=== PATIENT | male | born 1975 | race American Indian/Alaskan Native ===

== ENCOUNTER 2017-12-27 00:36 | Inpatient (IN) | payer OTHER ==
[2017-12-27] MEDS ORDERED: ASPIRIN PO ONE (01:08)
[2017-12-27 01:42] LABS: Basophils % (Auto) 0.5 % (0.0-1.8); Eosinophils % (Auto) 0.2 % (0.0-4.3); Hematocrit 43.8 % (35.5-45.6); Hemoglobin 15.2 gm/dl (11.8-15.2); Lymphocytes # (Auto) 2.3 K/mm3 (1.2-5.4); Lymphocytes % (Auto) 23.7 % (13.4-35.0); Mean Corpuscular HGB Conc 35 % (32-34); Mean Corpuscular Hemoglobin 31 pg (28-32); Mean Corpuscular Volume 90 fl (84-94); Monocytes % (Auto) 9.9 % (0.0-7.3); Platelet Count 230 K/mm3 (140-440); Red Blood Count 4.87 M/mm3 (3.65-5.03); Red Cell Distribution Width 12.8 % (13.2-15.2)
[2017-12-27 02:01] LABS: BUN/Creatinine Ratio 6; Blood Urea Nitrogen 6 mg/dL (9-20); Hemolysis Index 16
[2017-12-27 02:36] LABS: Chol/HDL Ratio 4.27 %; HDL Cholesterol 36 mg/dL (40-59); LDL Cholesterol,Direct 94 mg/dL (50-130)
[2017-12-27] MEDS ORDERED: LOPRESSOR PO ONE (02:43)
[2017-12-27] MEDS ORDERED: NITRO-BID 2% TP ONE (02:43)
[2017-12-27] MEDS ORDERED: PLAVIX PO ONE (02:43)
[2017-12-27] MEDS ORDERED: HEPARIN 25,000 UNIT in D5W 497.5 ML IV SCH (03:00)
--- NOTE | 2017-12-27 03:07 | Emergency Department Report ---
ED Chest Pain HPI - General Chief Complaint: Chest Pain Stated Complaint: CHEST PAIN Time Seen by Provider: 12/27/17 02:41 Source: patient Mode of arrival: Ambulatory Limitations: No Limitations - History of Present Illness Initial Comments: Patient said his chest pain is substernal in location and sided about 2 days ago lasted about 3 hours and improved. However on Wednesday night he started again in the same location while he was exercising and continued. He also felt pain in both hands. The pain was improved with Excedrin. There was no aggravating factor. MD Complaint: chest pain Onset/Timin (days) -: Gradual Onset: during rest, during exertion Pain Location: substernal Pain Radiation: RUE, LUE Severity: moderate Quality: squeezing Consistency: intermittent Improves With: other (Excedrin) Worsens With: nothing re: nausea Treatments Prior to Arrival: none Aspirin use within the Past 7 Days: (0) No - Related Data Allergies Allergy/AdvReac Type Severity Reaction Status Date / Time No Known Allergies Allergy Unverified 12/27/17 01:08 Heart Score - HEART Score History: Moderately suspicious EKG: Non-specific Age: < 45 Risk factors: 1-2 risk factors Troponin: > 3x normal limit HEART Score: 5 ED Review of Systems ROS: Stated complaint: CHEST PAIN Other details as noted in HPI Comment: All other systems reviewed and negative ED Past Medical Hx - Past Medical History Hx Hypertension: Yes ED Physical Exam - General Limitations: No Limitations General appearance: alert, in no apparent distress - Head Head exam: Present: atraumatic, normocephalic - Eye Eye exam: Present: normal appearance - ENT ENT exam: Present: mucous membranes moist - Neck Neck exam: Present: normal inspection - Respiratory Respiratory exam: Present: normal lung sounds bilaterally. Absent: respiratory distress - Cardiovascular Cardiovascular Exam: Present: regular rate, normal rhythm. Absent: systolic murmur, diastolic murmur, rubs, gallop - GI/Abdominal GI/Abdominal exam: Present: soft, normal bowel sounds. Absent: tenderness - Rectal Rectal exam: Present: deferred - Extremities Exam Extremities exam: Present: normal inspection - Back Exam Back exam: Present: normal inspection - Neurological Exam Neurological exam: Present: alert, oriented X3 - Psychiatric Psychiatric exam: Present: normal affect, normal mood - Skin Skin exam: Present: warm, dry, intact, normal color. Absent: rash ED Course Vital Signs 12/27/17 12/27/17 00:36 00:58 Temperature 98.4 F 98.4 F Pulse Rate 90 88 Respiratory 18 18 Rate Blood Pressure 147/113 147/113 O2 Sat by Pulse 97 96 Oximetry MONALISA score - Monalisa Score Age > 65: (0) No Aspirin use within the Past 7 Days: (0) No 3 or more CAD Risk Factors: (0) No 2 or more Angina events in past 24 hrs: (1) Yes Known CAD with more than 50% Stenosis: (0) No Elevated Cardiac Markers: (1) Yes ST Deviation Greater than 0.5mm: (0) No MONALISA Score: 2 ED Medical Decision Making - Lab Data Result diagrams: 12/27/17 01:21 12/27/17 01:21 - EKG Data -: EKG Interpreted by Me EKG shows normal: sinus rhythm (normal sinus rhythm at a rate of 73), axis ( normal), intervals (normal), QRS complexes (normal), ST-T waves (normal) - Medical Decision Making I spoke to Dr. Rosen and he has accepted the patient for admission Critical care attestation.: If time is entered above; I have spent that time in minutes in the direct care of this critically ill patient, excluding procedure time. ED Disposition Clinical Impression: Non-STEMI (non-ST elevated myocardial infarction) Disposition: 09 OP ADMIT IP TO THIS HOSP Is pt being admited?: Yes Does the pt Need Aspirin: Yes Condition: Stable Time of Disposition: 03:14 Print Language: CZECH
[2017-12-27] MEDS ORDERED: HEPARIN/ 0.45% NACL-25,000 UNIT/500 ML 25,000 UNIT/500 ML BAG IV SCH (03:15)
[2017-12-27 03:20] LABS: Hematocrit 45.2 % (35.5-45.6); Hemoglobin 15.4 gm/dl (11.8-15.2)
[2017-12-27] MEDS ORDERED: ASPIRIN ONE (03:25)
[2017-12-27 03:30] LABS: INR 0.95 (0.87-1.13); Partial Thromboplastin Time 28.1 Sec. (24.2-36.6)
[2017-12-27] MEDS ORDERED: MORPHINE IV PRN (03:57)
[2017-12-27] MEDS ORDERED: ASPIRIN PO NR (04:00)
--- NOTE | 2017-12-27 04:00 | XRay Report ---
FINAL REPORT PROCEDURE: XR CHEST 1V AP TECHNIQUE: Chest radiograph anteroposterior view. CPT 00590 HISTORY: chest pain COMPARISON: No prior studies are available for comparison. FINDINGS: Heart: Normal. Mediastinum/Vessels: Normal. Lungs/Pleural space: Normal. Bony thorax: No acute osseous abnormality. Life support devices: None. IMPRESSION: No acute cardiopulmonary abnormality.
[2017-12-27] MEDS ORDERED: TYLENOL PO PRN (04:01)
[2017-12-27] MEDS ORDERED: ZOFRAN IV PRN (04:01)
[2017-12-27 07:09] LABS: Creatine Kinase MB 37.5 ng/mL (0.0-4.0)
[2017-12-27] MEDS: NITRO-BID 2% TP SCH ×4 (07:26→19:34)
--- NOTE | 2017-12-27 11:05 | Consultation ---
History of Present Illness Consult date: 12/27/17 Consult reason: abnormal cardiac enzymes History of present illness: This is a 42yr old male with a history of Hypertension who has not seen a physician in several years. He presents to this hospital with complaints of chest pain. Patient reports he noted chest pain 4 days ago while he was cutting his grass. He denies shortness of breath and palpitations. There was no syncope. Initial workup measured cardiac enzymes which demonstrates a CK of 855, CK/MB of 37.5 and relative index of 4.3 consistent with a non-ST elevation myocardial infarction. His ECG is a normal sinus rhythm, no acute ischemic changes. Cardiology consultation was requested for further cardiac evaluation. Medications and Allergies Allergies Allergy/AdvReac Type Severity Reaction Status Date / Time No Known Allergies Allergy Unverified 12/27/17 01:08 Home Medications Medication Instructions Recorded Confirmed Last Taken Type No Known Home Medications [No 12/27/17 12/27/17 Unknown History Reported Home Medications] Active Meds: Active Medications Acetaminophen (Tylenol) 650 mg PO Q4H PRN PRN Reason: Pain, Mild (1-3) Aspirin (Aspirin) 325 mg PO DAILY [facility] Heparin Sodium/Sodium Chloride (Heparin/ 0.45% Nacl-25,000 Unit/500 Ml) 25,000 unit in 500 mls @ 20 mls/hr IV TITRATE [facility]; Protocol Last Titration: 12/27/17 10:21 Dose: 1,100 units/hr, 22 mls/hr Morphine Sulfate (Morphine) 2 mg IV Q5MIN PRN PRN Reason: Chest Pain Nitroglycerin (Nitro-Bid 2%) 1 inch TP QIDNTG [facility]; Protocol Last Admin: 12/27/17 10:50 Dose: 1 inch Ondansetron HCl (Zofran) 4 mg IV Q6H PRN PRN Reason: Nausea And Vomiting Physical Examination Vital Signs Temp Pulse Resp BP Pulse Ox 98.4 F 90 18 147/113 97 12/27/17 00:36 12/27/17 00:36 12/27/17 00:36 12/27/17 00:36 12/27/17 00:36 General appearance: no acute distress HEENT: Positive: PERRL Cardiac: Positive: Reg Rate and Rhythm Lungs: Positive: Decreased Breath Sounds Neuro: Positive: Grossly Intact Extremities: Absent: edema Results 12/27/17 03:06 12/27/17 01:21 Cardiac Enzymes 12/27/17 Range/Units 06:10 CK-MB (CK-2) 37.5 H (0.0-4.0) ng/mL Coagulation 12/27/17 Range/Units 03:06 PT 13.1 (12.2-14.9) Sec. INR 0.95 (0.87-1.13) APTT 28.1 (24.2-36.6) Sec. Lipids 12/27/17 Range/Units 01:21 Triglycerides 198 H (2-149) mg/dL Cholesterol 154 (50-199) mg/dL HDL Cholesterol 36 L (40-59) mg/dL Cholesterol/HDL Ratio 4.27 % CBC 12/27/17 12/27/17 Range/Units 01:21 03:06 WBC 9.7 (4.5-11.0) K/mm3 RBC 4.87 (3.65-5.03) M/mm3 Hgb 15.2 15.4 H (11.8-15.2) gm/dl Hct 43.8 45.2 (35.5-45.6) % Plt Count 230 223 (140-440) K/mm3 Lymph # 2.3 (1.2-5.4) K/mm3 [place] # 1.0 H (0.0-0.8) K/mm3 Eos # 0.0 (0.0-0.4) K/mm3 Baso # 0.0 (0.0-0.1) K/mm3 Comprehensive Metabolic Panel 12/27/17 Range/Units 01:21 Sodium 133 L (137-145) mmol/L Potassium 3.8 (3.6-5.0) mmol/L Chloride 94.7 L (98-107) mmol/L Carbon Dioxide 28 (22-30) mmol/L BUN 6 L (9-20) mg/dL Creatinine 1.0 (0.8-1.5) mg/dL Glucose 116 H (75-100) mg/dL Calcium 9.0 (8.4-10.2) mg/dL Assessment and Plan - Patient Problems (1) Non-STEMI (non-ST elevated myocardial infarction) Current Visit: Yes Status: Acute
[2017-12-27] MEDS ORDERED: HEPARIN/NS 5000 UNIT/500ML(CATH LAB) 1,000 ML IR ONE (12:14)
[2017-12-27] MEDS ORDERED: CALAN ONE (12:14)
[2017-12-27] MEDS ORDERED: HEPARIN 10,000 UNITS/10 ML ONE (12:14)
[2017-12-27] MEDS ORDERED: XYLOCAINE 2% INFILTRATI ONE (12:15)
[2017-12-27] MEDS ORDERED: NITROGLYCERIN SYRINGE 3 ML ONE (12:15)
[2017-12-27] MEDS ORDERED: NACL 0.9% 250ML 250 ML ONE (12:22)
--- NOTE | 2017-12-27 12:28 | Event Note ---
Date: 12/27/17 Patient admitted with chest pain, likely NSTEMI. I have seen and examined him. Continue Aspirin, Heparin drip. Cardiology following
[2017-12-27] MEDS: VERSED ONE ×2 (12:58→13:01)
[2017-12-27] MEDS: SUBLIMAZE ONE ×2 (12:58→13:02)
--- NOTE | 2017-12-27 13:20 | Event Note ---
Date: 12/27/17 Cardiac catheterization performed via the right radial artery, no complications. Findings: Angiographically normal coronary arteries. Normal left ventricle systolic function, ejection fraction 60%. Recommendations: Risk factor modification, recommend a baby aspirin. The patient is stable for cardiac discharge.
[2017-12-27] MEDS ORDERED: NACL 0.9% 1000 ML 1,000 ML IV SCH (14:00)
[2017-12-27] MEDS ORDERED: NACL 0.9% 500 ML 500 ML IV SCH (14:00)
[2017-12-27 15:01] LABS: Creatine Kinase MB 16.2 ng/mL (0.0-4.0)
[2017-12-27 15:02] LABS: Albumin 3.9 g/dL (3.9-5); Bilirubin,Direct 0.3 mg/dL (0-0.2)
[2017-12-28] MEDS: NITRO-BID 2% TP SCH ×4 (05:35→18:00)
[2017-12-28 06:35] LABS: Hematocrit 43.5 % (35.5-45.6); Mean Corpuscular HGB Conc 32 % (32-34); Mean Corpuscular Hemoglobin 30 pg (28-32); Mean Corpuscular Volume 93 fl (84-94); Platelet Count 209 K/mm3 (140-440); Red Blood Count 4.69 M/mm3 (3.65-5.03); Red Cell Distribution Width 13.3 % (13.2-15.2)
[2017-12-28 07:02] LABS: Alanine Aminotransferase 15 units/L (7-56); Albumin 3.8 g/dL (3.9-5); BUN/Creatinine Ratio 11; Blood Urea Nitrogen 11 mg/dL (9-20); Calcium 8.4 mg/dL (8.4-10.2); Hemolysis Index 11
[2017-12-28] MEDS ORDERED: ASPIRIN PO SCH (10:00)
--- NOTE | 2017-12-28 12:50 | Progress Note ---
Assessment and Plan - Patient Problems (1) Non-STEMI (non-ST elevated myocardial infarction) Current Visit: Yes Status: Acute Plan to address problem: LHC: Angiographically normal coronary arteries. Normal left ventricle systolic function, ejection fraction 60%. Recommendations: Risk factor modification and a daily low dose aspirin. Patient is stable for cardiac discharge. We will sign off. Subjective Date of service: 12/28/17 Interval history: Patient denies chest pain. Reports he is feeling better. Objective Vital Signs Temp Pulse Pulse Pulse Resp BP BP 12/28/17 10:41 73 12/28/17 10:00 12/28/17 09:38 80 129/76 12/28/17 08:54 70 70 18 12/28/17 07:42 98.4 F 80 19 129/76 12/28/17 05:18 98.6 F 77 18 122/81 12/28/17 05:00 77 12/28/17 00:03 99.3 F 79 18 109/71 12/27/17 21:29 18 12/27/17 21:00 95 H 12/27/17 20:15 101.5 F H 85 18 112/71 12/27/17 20:12 12/27/17 16:15 95 H 18 114/55 12/27/17 15:45 98.2 F 78 109/51 12/27/17 15:15 98.8 F 78 18 104/63 12/27/17 14:53 73 117/82 12/27/17 14:45 94 H 18 115/75 12/27/17 14:30 98.8 F 75 20 111/66 12/27/17 14:15 98.8 F 73 18 117/82 12/27/17 14:00 98.8 F 79 18 117/84 12/27/17 13:49 99.2 F 77 20 111/76 Pulse Ox 12/28/17 10:41 12/28/17 10:00 98 12/28/17 09:38 12/28/17 08:54 98 12/28/17 07:42 95 12/28/17 05:18 93 12/28/17 05:00 12/28/17 00:03 96 12/27/17 21:29 97 12/27/17 21:00 12/27/17 20:15 96 12/27/17 20:12 97 12/27/17 16:15 97 12/27/17 15:45 12/27/17 15:15 96 12/27/17 14:53 12/27/17 14:45 97 12/27/17 14:30 96 12/27/17 14:15 97 12/27/17 14:00 98 12/27/17 13:49 93 - Physical Examination General: No Apparent Distress HEENT: Positive: PERRL Cardiac: Positive: Reg Rate and Rhythm Lungs: Positive: Decreased Breath Sounds Neuro: Positive: Grossly Intact Extremities: Absent: edema - Labs and Meds Cardiac Enzymes 12/27/17 12/27/17 12/28/17 Range/Units 13:51 13:51 05:47 AST 54 H 30 (5-40) units/L CK-MB (CK-2) 16.2 H (0.0-4.0) ng/mL CBC 12/28/17 Range/Units 05:47 WBC 7.5 (4.5-11.0) K/mm3 RBC 4.69 (3.65-5.03) M/mm3 Hgb 14.0 (11.8-15.2) gm/dl Hct 43.5 (35.5-45.6) % Plt Count 209 (140-440) K/mm3 Comprehensive Metabolic Panel 12/27/17 12/28/17 Range/Units 13:51 05:47 Sodium 138 (137-145) mmol/L Potassium 4.3 (3.6-5.0) mmol/L Chloride 100.8 (98-107) mmol/L Carbon Dioxide 26 (22-30) mmol/L BUN 11 (9-20) mg/dL Creatinine 1.0 (0.8-1.5) mg/dL Glucose 115 H (75-100) mg/dL Calcium 8.4 (8.4-10.2) mg/dL Direct Bilirubin 0.3 H (0-0.2) mg/dL Indirect Bilirubin 1.7 mg/dL AST 54 H 30 (5-40) units/L ALT 20 15 (7-56) units/L Alkaline Phosphatase 47 44 (35-129) units/L Total Protein 7.4 6.9 (6.3-8.2) g/dL Albumin 3.9 3.8 L (3.9-5) g/dL
--- NOTE | 2017-12-28 14:40 | Discharge Summary ---
Providers - Providers Date of Admission: 12/27/17 03:16 Date of discharge: 12/28/17 Attending physician: TRISTEN GROVES 12/27/17 13:21 Consult to Cardiac Rehabilitation [CONS] Routine Reason For Exam: Cardiac Rehab Evaluation Primary care physician: SONIA QUACH Hospitalization Condition: Stable Pertinent studies: LHC: Angiographically normal coronary arteries, normal left ventricle systolic function, ejection fraction 60%. Chest x-ray: No cardiopulmonary abnormality Hospital course: This is a 42-year-old man without any prior medical history presented with 4 days of recurrent substernal chest pain. His presenting ECG was normal but the cardiac enzymes were elevated with a total CPK of 855 and a CK-MB of 37.5. Cardiology was consulted with a concern for non-ST elevation myocardial infarction. The patient was taken to the sanitation laborer for early invasive therapy with the cardiac catheterization. His right heart cardiac catheter was unremarkable showing normal coronaries. Patient was advised to discharge home with baby aspirin by jinrikisha driver. He was discharged home in stable condition. He'll follow up at cardiology office in 2 weeks. Discharge diagnosis: Chest pain, likely due to GERD Elevated troponin, suspected NSTEMI on admission - nonspecific Physical exam: GENERAL: well-developed and well-nourished male lying on bed appeared to be in no discomfort. HEENT: Normocephalic. Atraumatic. No conjunctival congestion or icterus. Patient has moist mucous membranes. NECK: Supple. Trachea midline. CHEST/LUNGS: Clear to auscultated bilaterally, breathing nonlabored. No wheezes crackles or rhonchi. HEART/CARDIOVASCULAR: Regular in rate and rhythm. S1 and S2 positive. ABDOMEN: Abdomen is soft, nontender. Patient has normal bowel sounds. SKIN: There is no rash. Warm and dry. NEURO: No focal motor deficit. Follows command. MUSCULOSKELETAL: No joint effusion or tenderness. EXTRIMITY: No edema, no cyanosis or clubbing. PSYCH: Cooperative. Disposition: -01 TO HOME OR SELFCARE Time spent for discharge: 32 minutes Core Measure Documentation - Palliative Care Palliative Care/ Comfort Measures: Not Applicable - Core Measures Any of the following diagnoses?: none Exam - Constitutional Vitals: Temp Pulse Resp BP Pulse Ox 98.3 F 72 18 126/87 97 12/28/17 12:49 12/28/17 13:45 12/28/17 12:49 12/28/17 13:45 12/28/17 12:49 Plan Activity: advance as tolerated Weight Bearing Status: Weight Bear as Tolerated Diet: low cholesterol, low salt Additional Instructions: f/u with [facility] in two weeks Follow up with: SONIA QUACH MD [Primary Care Provider] - 7 Days Prescriptions: Aspirin [Aspirin EC] 81 mg PO DAILY #30 tablet.
[2017-12-28 16:51] VITALS: BP 129/95
--- NOTE | 2017-12-29 10:06 | History and Physical Report ---
CHIEF COMPLAINT: Chest pain. HISTORY OF PRESENT ILLNESS: The patient is a 41-year-old male, who said he has been having pressure-like chest pain that started about 2 days ago. The pain is located in the precordial area. It does not radiate to the neck area or jaw or upper arm and was not associated with shortness of breath, nausea, vomiting or diaphoresis. There is no history of dizziness, diaphoresis, shortness of breath, nausea or vomiting. The patient also complained of pain in both hands that occurs during this entire the chest pain was happening. The patient said he took Excedrin [id number] medication with some antacid that helped his chest pain, but did not resolve the pain completely. The patient drove himself to the Emergency Room, where he was found to have elevated troponin level and presented for admission. PAST MEDICAL HISTORY: The patient's past medical history is pertinent for hypertension. PAST SURGICAL HISTORY: Unremarkable. FAMILY HISTORY: Noncontributory. SOCIAL HISTORY: The patient does smoke, does not drink alcohol, and does not use illicit drugs. MEDICATIONS: The patient is not on any known medication. ALLERGIES: There are no known drug allergies. REVIEW OF SYSTEMS: CONSTITUTIONAL: There is no fever, no chills, no diaphoresis. HEENT: There is no headache or sore throat. CARDIOVASCULAR SYSTEM: Shows chest pain, there is no orthopnea. RESPIRATORY SYSTEM: There is no shortness of breath and no cough. GASTROINTESTINAL SYSTEM: There is no nausea, no vomiting, no abdominal pain, diarrhea or constipation. NEUROLOGICAL SYSTEM: There is no numbness, no dizziness, no altered mental status. MUSCULOSKELETAL SYSTEM: There is no joint pain or swelling. DERMATOLOGIC SYSTEM: There is no skin rash or itching. GENITOURINARY SYSTEM: There is no dysuria, hematuria or flank pain. Rest of system review is ____. PHYSICAL EXAMINATION: GENERAL: At the time of exam, the patient was found to be alert, oriented x 3 and not in acute distress. VITAL SIGNS: Shows normal temperature of 98.4, pulse of 84, respiration 16, blood pressure 164/114, and with O2 sat of 97% on room air. HEENT: Showed pupils to be equal, round, and reactive to light and accommodative. Extraocular muscles are intact. NECK: Supple with no JVD or carotid bruit. CARDIOVASCULAR SYSTEM: Showed normal first and second heart sounds, with no gallops or murmur. RESPIRATORY SYSTEM: Showed good air entry on both sides of the lung with no abnormal breath sounds. GASTROINTESTINAL SYSTEM: Showed abdomen to be full, soft, and nontender with no organomegaly or rigidity. NEUROLOGIC: Showed no focal deficits. MUSCULOSKELETAL SYSTEM: Showed no joint pain or swelling. DERMATOLOGICAL SYSTEM: Showed no skin rash. GENITOURINARY: Showed no costovertebral angle tenderness. PERTINENT LABORATORY AND IMAGING STUDIES: The patient had CBC done with normal white count, slightly elevated hemoglobin of 15.4 and normal hematocrit of 45.2. CBC differential showed elevated monocyte count of 9.9% with normal segmented neutrophils and unremarkable bands. Coagulation studies came back unremarkable. The patient's chemistry showed low sodium of 133, low chloride of 94.7, normal potassium level with normal CO2 and normal renal function. The patient's troponin level was high with a value of 1.4 and lipid panel showed high triglyceride of 198 with normal LDL cholesterol, normal total cholesterol and slightly low HDL cholesterol. IMAGING STUDIES: No imaging studies were done at this time. DIAGNOSES: 1. Non-ST elevation myocardial infarction. 2. Hypertension. PLAN: The patient will be admitted as inpatient to telemetry and will continue IV heparin drip started in the Emergency Room. The patient will be on nitro paste 1 inch to anterior chest q.i.d. and will be on an aspirin 325 mg by mouth daily. The patient will be on Tylenol 650 mg by mouth every 4 hours for fever and headache and will be on IV Zofran 4 mg every 6 hours for nausea and vomiting. The patient will remain n.p.o. for possible intervention by the shipping and receiving operator in the morning and will have Cardiology consult with Dr. Ron for management of NSTEMI. The patient will be placed on IV hydralazine 10 mg every 4 hours as needed for blood pressure with systolic above 150 mmHg. The patient will be on oxygen by nasal cannula at 2 liters per minute. JOB# [id number] OCN/NTS
--- NOTE | 2017-12-29 10:11 | Cardiac Catherization Report ---
CARDIAC CATHETERIZATION REASON FOR PROCEDURE: The patient is a 42-year-old man who presented with chest pain and cardiac enzyme evidence of possible non-ST elevation myocardial infarction. He was recommended for a cardiac catheterization. PROCEDURE: The patient was prepped and draped in a sterile fashion after informed consent. The right radial cath site was prepped and draped after a negative Adam's test. The right radial artery was entered using Seldinger technique followed by placement of a 6-[place] hydrophilic sheath. Routine radial cocktail was administered via the sheath. Left coronary angiography was performed using #3.5 left Aaron catheter. A #4 right Aaron was used for right coronary angiography. The catheters were removed, sheath removed, and hemostasis achieved using manual compression. The patient was returned to the postprocedure unit in stable condition. There were no complications. FINDINGS: HEMODYNAMICS: Left ventricular end-diastolic pressure was 21, following coronary angiography. Ascending aortic pressure was 120/80. There was no significant pressure gradient on pullback across the aortic valve. CORONARY ANGIOGRAPHY: Left main coronary artery was angiographically normal. The left anterior descending artery and its diagonal branches were angiographically normal. A large ramus intermedius artery was angiographically normal. The circumflex artery and its obtuse marginal branches were angiographically normal. The right coronary artery was dominant and similarly angiographically normal. Left ventricular systolic function was normal, ejection fraction 60%. CONCLUSION: 1. Essentially, angiographically normal coronary arteries. 2. Normal left ventricular systolic function, ejection fraction 60%. RECOMMENDATION: Risk factor modification and medical therapy. JOB# [id number] CA/NTS
== END 2017-12-28 18:55 | disposition home or self-care (01) | DRG 392 ==
LOC: ED 00:36 → 4A 03:16
PROVIDERS: ADMIT Internal Medicine; ATTEND Internal Medicine
PROC: 4A023N7 Measurement of Cardiac Sampling and Pressure, Left Heart, Percutaneous Approach (ICD-10-PCS; principal; 2017-12-27)
PROC: B2151ZZ Fluoroscopy of Left Heart using Low Osmolar Contrast (ICD-10-PCS; 2017-12-27)
PROC: B2111ZZ Fluoroscopy of Multiple Coronary Arteries using Low Osmolar Contrast (ICD-10-PCS; 2017-12-27)
DX: K21.9 Gastro-esophageal reflux disease without esophagitis (principal); I10 Essential (primary) hypertension
CPT/HCPCS: 36415; 71045; 80048; 80053; 80061; 80074; 82550; 82553; 84484; 85014; 85018; 85025; 85027; 85049; 85520; 85610; 85730; 93005; 93010; 93458; 96365; C1894; J1644; J2250; J3010; J7030; J7040; J7050; Q9967